=== PATIENT | male | born 1965 | race Hispanic/Latino ===

== ENCOUNTER 2018-07-21 10:17 | Inpatient (IN) | payer BC, OTHER ==
[~2018-07-21] VITALS: Ht 162.6 cm; Wt 70.1 kg
[2018-07-21] VITALS (16 sets, daily range): BP systolic 117–132; BP diastolic 76–95
[2018-07-21] MEDS ORDERED: LIDOCAINE HCL 2% 20ML ONE (10:30)
[2018-07-21] MEDS ORDERED: IOHEXOL 350 MG/ML 100ML INFUS..BTL IV ONE (10:30)
[2018-07-21] MEDS ORDERED: BIVALIRUDIN 250 MG/VIAL IV ONE (10:30)
[2018-07-21] MEDS ORDERED: IOHEXOL-350 50ML VIAL IV ONE (10:30)
[2018-07-21] MEDS ORDERED: NITROGLYCERIN 5 MG/ML 10 ML VIAL IV ONE (10:32)
[2018-07-21] MEDS ORDERED: HEPARIN SODIUM 1000UNIT/ML 10ML VIAL ONE (10:38)
[2018-07-21] MEDS ORDERED: MORPHINE SULFATE 4 MG/1ML SYG ONE (10:40)
[2018-07-21 10:50] LABS: BASOPHILS % (AUTO) 0.7 % (0.0-5.0); EOSINOPHILS % (AUTO) 1.9 % (0.0-8.0); HEMATOCRIT 41.8 % (42-54); LYMPHOCYTES % (AUTO) 51.5 % (21.0-51.0); MEAN CORPUSCULAR HEMOGLOBIN 30.8 pg (27.0-33.0); MEAN CORPUSCULAR HGB CONC 34.7 g/dL (32.0-36.0); MEAN CORPUSCULAR VOLUME 88.8 fL (79-99); MONOCYTES % (AUTO) 8.6 % (3.0-13.0); NEUTROPHILS % (AUTO) 37.3 % (40.0-77.0); NUCLEATED RED BLOOD CELLS 0.1 % (0.0-0.19); PLATELET COUNT (AUTO) 277 K/uL (130-400); RED BLOOD CELL COUNT(AUTO) 4.71 MIL/uL (4.50-6.20); RED CELL DISTRIBUTION WIDTH 13.5 % (11.0-15.5); WHITE BLOOD COUNT (AUTO) 9.4 K/uL (4.8-10.8)
[2018-07-21 10:53] LABS: PARTIAL THROMBOPLASTIN TIME 25.7 SEC (26.3-35.5); PROTHROMBIN TIME 10.5 SEC (9.6-11.6)
[2018-07-21 11:00] LABS: ALBUMIN 3.9 g/dL (3.5-5.0); BILIRUBIN,TOTAL 0.4 mg/dL (0.2-1.0); CREATININE 0.9 mg/dL (0.5-1.5); TOTAL PROTEIN, SERUM 7.7 g/dL (6.0-8.3)
[2018-07-21] MEDS ORDERED: AMIODARONE HCL 900 MG in DEXTROSE 5%-WATER 500 ML IV SCH (11:00)
[2018-07-21 11:02] LABS: POTASSIUM 2.7 mmol/L (3.5-5.1)
[2018-07-21] MEDS ORDERED: POTASSIUM CHLORIDE 20MEQ/100ML 100 ML IV ONE (11:03)
[2018-07-21] MEDS ORDERED: IOHEXOL-350 75 ML VIAL IV ONE (11:20)
[2018-07-21] MEDS ORDERED: TICAGRELOR 90 MG TABLET ONE (11:34)
[2018-07-21] MEDS ORDERED: NITROGLYCERIN 50 MG/D5% WATER 1 BOT IV PRN (12:00)
[2018-07-21] MEDS ORDERED: AMIODARONE HCL 50 MG/ML 3 ML VIAL IV ONE (12:00)
[2018-07-21] MEDS ORDERED: TEMAZEPAM 30 MG CAP PO PRN (12:00)
[2018-07-21] MEDS ORDERED: ONDANSETRON HCL 4 MG/2 ML VIAL IVP PRN (12:00)
[2018-07-21] MEDS ORDERED: ACETAMINOPHEN-CODEINE 300/30MG TAB PO PRN ×2 (12:00)
[2018-07-21] MEDS ORDERED: NITROGLYCERIN 0.4 MG SL TAB SL PRN (12:00)
[2018-07-21 15:49] LABS: AMPHET/METH SCREEN,URINE NEGATIVE (NEGATIVE); BARBITURATE SCREEN, URINE NEGATIVE (NEGATIVE); BENZODIAZEPINES SCREEN,URINE NEGATIVE (NEGATIVE); CANNABINOID SCREEN,URINE NEGATIVE (NEGATIVE); COCAINE SCREEN,URINE NEGATIVE (NEGATIVE); OPIATE SCREEN,URINE NEGATIVE (NEGATIVE); PHENCYCLIDINE SCREEN,URINE NEGATIVE (NEGATIVE)
[2018-07-21] MEDS: INSULIN HUMULIN R 100 UNIT/ML 3ML SQ SCH ×2 (16:30→21:00)
[2018-07-21] MEDS ORDERED: POTASSIUM CHLORIDE 20MEQ/100ML 100 ML IV PRN (17:30)
[2018-07-21] MEDS ORDERED: POTASSIUM CHLORIDE 10% ELIXIR 20 MEQ/15 ML UDCUP PO PRN (17:30)
[2018-07-21] MEDS ORDERED: LIDOCAINE HCL-MPF 1% 2ML VIAL IVP PRN (17:30)
[2018-07-21] MEDS: POTASSIUM CHLORIDE 20 MEQ ERTAB PO PRN ×2 (18:06→22:05)
[2018-07-21] MEDS ORDERED: METOPROLOL TARTRATE 25 MG TAB PO SCH (21:00)
[2018-07-21] MEDS: TICAGRELOR 90 MG TABLET PO SCH (22:03)
[2018-07-22] VITALS (14 sets, daily range): BP systolic 100–139; BP diastolic 45–90
[2018-07-22 03:53] LABS: HEMATOCRIT 42.3 % (42-54); MEAN CORPUSCULAR HEMOGLOBIN 30.8 pg (27.0-33.0); MEAN CORPUSCULAR HGB CONC 34.5 g/dL (32.0-36.0); MEAN CORPUSCULAR VOLUME 89.2 fL (79-99); PLATELET COUNT (AUTO) 262 K/uL (130-400); RED BLOOD CELL COUNT(AUTO) 4.74 MIL/uL (4.50-6.20); RED CELL DISTRIBUTION WIDTH 13.9 % (11.0-15.5)
[2018-07-22 04:31] LABS: CREATININE 0.9 mg/dL (0.5-1.5); POTASSIUM 4.1 mmol/L (3.5-5.1)
[2018-07-22 07:09] LABS: HEMOGLOBIN A1C 5.7 % (4.0-6.0)
[2018-07-22] MEDS: INSULIN HUMULIN R 100 UNIT/ML 3ML SQ SCH ×4 (07:15→21:00)
[2018-07-22] MEDS: ASPIRIN 81MG TAB.CHEW PO SCH (08:04)
[2018-07-22] MEDS: PANTOPRAZOLE SODIUM 40 MG TABLET.DR PO SCH (08:05)
[2018-07-22] MEDS: LISINOPRIL 10 MG TABLET PO SCH (08:05)
[2018-07-22] MEDS: METOPROLOL TARTRATE 50 MG TAB PO SCH ×2 (08:05→20:45)
[2018-07-22] MEDS: TICAGRELOR 90 MG TABLET PO SCH ×2 (08:06→20:45)
[2018-07-22] MEDS ORDERED: ASPIRIN 81MG TAB.CHEW PO SCH (09:00)
[2018-07-22] MEDS ORDERED: ATORVASTATIN CALCIUM 40 MG TABLET ONE (19:21)
[2018-07-22] MEDS ORDERED: ATORVASTATIN CALCIUM 40 MG TABLET PO SCH ×2 (21:00)
[2018-07-23 04:03] VITALS: BP 103/64
[2018-07-23] MEDS: INSULIN HUMULIN R 100 UNIT/ML 3ML SQ SCH ×2 (06:23→11:30)
[2018-07-23 07:00] VITALS: BP 112/67
[2018-07-23] MEDS: ASPIRIN 81MG TAB.CHEW PO SCH (08:15)
[2018-07-23] MEDS: LISINOPRIL 10 MG TABLET PO SCH (08:15)
[2018-07-23] MEDS: TICAGRELOR 90 MG TABLET PO SCH (08:16)
[2018-07-23] MEDS: PANTOPRAZOLE SODIUM 40 MG TABLET.DR PO SCH (08:16)
[2018-07-23] MEDS: METOPROLOL TARTRATE 50 MG TAB PO SCH (08:16)
[2018-07-23] MEDS ORDERED: METO50TA18 PO (08:58)
[2018-07-23] MEDS ORDERED: TICA90TA PO (08:58)
[2018-07-23] MEDS ORDERED: ASPI-1197 PO (08:58)
[2018-07-23] MEDS ORDERED: ATOR40TA69 PO (08:58)
[2018-07-23] MEDS ORDERED: LISI10TA7 PO (08:59)
[2018-07-23 09:13] LABS: POTASSIUM 3.7 mmol/L (3.5-5.1)
[2018-07-23 11:00] VITALS: BP 112/73
== END 2018-07-23 15:30 | disposition home or self-care (01) | DRG 246 ==
LOC: EDH 10:17 → OBSVTOIN 10:18 → EDHIP 10:18 → 2CH 11:15 → 2AH 07-22 17:41
PROVIDERS: ADMIT Internal Medicine; ATTEND Internal Medicine
PROC: 027135Z Dilation of Coronary Artery, Two Arteries with Two Drug-eluting Intraluminal Devices, Percutaneous Approach (ICD-10-PCS; principal; 2018-07-21)
PROC: 4A023N7 Measurement of Cardiac Sampling and Pressure, Left Heart, Percutaneous Approach (ICD-10-PCS; 2018-07-21)
PROC: B2111ZZ Fluoroscopy of Multiple Coronary Arteries using Low Osmolar Contrast (ICD-10-PCS; 2018-07-21)
PROC: B2151ZZ Fluoroscopy of Left Heart using Low Osmolar Contrast (ICD-10-PCS; 2018-07-21)
DX: I21.09 ST elevation (STEMI) myocardial infarction involving other coronary artery of anterior wall (principal); I50.31 Acute diastolic (congestive) heart failure; I49.01 Ventricular fibrillation; I46.2 Cardiac arrest due to underlying cardiac condition; I47.2 Ventricular tachycardia; I11.0 Hypertensive heart disease with heart failure
CPT/HCPCS: 36415; 71045; 80048; 80053; 80061; 80305; 82550; 82948; 83036; 83874; 83880; 84484; 85025; 85027; 85610; 85730; 92921; 92950; 93005; 93306; 93458; C1725; C1760; C1769; C1887; C1894; C9607; J0282; J0583; J1644; J2270; J3480; J3490; J7060; Q9967

== ENCOUNTER 2018-08-15 05:36 | Day surgery (SDC) | payer BC ==
[2018-08-13 11:50] VITALS: BP 117/66
[2018-08-13 12:36] LABS: BASOPHILS % (AUTO) 0.4 % (0.0-5.0); EOSINOPHILS % (AUTO) 2.6 % (0.0-8.0); HEMATOCRIT 41.3 % (42-54); LYMPHOCYTES % (AUTO) 26.2 % (21.0-51.0); MEAN CORPUSCULAR HEMOGLOBIN 30.5 pg (27.0-33.0); MEAN CORPUSCULAR HGB CONC 34.3 g/dL (32.0-36.0); MEAN CORPUSCULAR VOLUME 88.9 fL (79-99); MONOCYTES % (AUTO) 8.1 % (3.0-13.0); NEUTROPHILS % (AUTO) 62.7 % (40.0-77.0); NUCLEATED RED BLOOD CELLS 0.2 % (0.0-0.19); PLATELET COUNT (AUTO) 259 K/uL (130-400); RED BLOOD CELL COUNT(AUTO) 4.64 MIL/uL (4.50-6.20); RED CELL DISTRIBUTION WIDTH 13.2 % (11.0-15.5); WHITE BLOOD COUNT (AUTO) 9.2 K/uL (4.8-10.8)
[2018-08-13 12:45] LABS: APPEARANCE,URINE Clear (CLEAR); BILIRUBIN,URINE Negative (NEGATIVE); COLOR,URINE Yellow (YELLOW); GLUCOSE, URINE (UA) Negative (NEGATIVE); KETONES,URINE Negative (NEGATIVE); LEUKOCYTE ESTERASE ,URINE Small (NEGATIVE); NITRATE,URINE Negative (NEGATIVE); OCCULT BLOOD,URINE Negative (NEGATIVE); PROTEIN,URINE Negative (NEGATIVE)
[2018-08-13 12:48] LABS: CREATININE 0.9 mg/dL (0.5-1.5); POTASSIUM 4.4 mmol/L (3.5-5.1)
[2018-08-13 12:53] LABS: INR 1.06 (0.85-1.15); PARTIAL THROMBOPLASTIN TIME 31.1 SEC (26.3-35.5); PROTHROMBIN TIME 11.1 SEC (9.6-11.6)
[2018-08-13 13:27] LABS: BACTERIA,URINE Rare /HPF (None Seen); RBC,URINE 0-1 /HPF (0-1); SQUAMOUS EPITHELIAL CELL,UR Rare /HPF (0-2); WBC,URINE 0-1 /HPF (0-1)
[~2018-08-15] VITALS: Ht 162.6 cm; Wt 70.2 kg
[2018-08-15] VITALS (19 sets, daily range): BP systolic 101–132; BP diastolic 70–84
[~2018-08-15 05:36] MED LIST: ASPI-1197 PO; ATOR40TA69 PO; LISI10TA7 PO; METO50TA18 PO; TICA90TA PO
[2018-08-15] MEDS ORDERED: SODIUM CHLORIDE 0.9% 1000ML 1,000 ML IV ONE (06:21)
[2018-08-15] MEDS ORDERED: BIVALIRUDIN 250 MG/VIAL IV ONE (07:15)
[2018-08-15] MEDS ORDERED: NITROGLYCERIN 5 MG/ML 10 ML VIAL IV ONE (07:16)
[2018-08-15] MEDS ORDERED: IOHEXOL-350 50ML VIAL IV ONE (07:16)
[2018-08-15] MEDS ORDERED: LIDOCAINE HCL 2% 20ML ONE (07:16)
[2018-08-15] MEDS ORDERED: IOHEXOL 350 MG/ML 100ML INFUS..BTL IV ONE (07:16)
[2018-08-15] MEDS ORDERED: FENTANYL CITRATE PF 50 MCG/1 ML 2ML VIAL ONE (07:52)
[2018-08-15] MEDS ORDERED: MIDAZOLAM HCL 1 MG/ML 2ML VIAL ONE (07:52)
[2018-08-15] MEDS ORDERED: SODIUM CHLORIDE 0.9% 1000ML 1,000 ML IV SCH (08:27)
[2018-08-15] MEDS ORDERED: DEXTROSE 50%-WATER 50 ML DISP.SYRIN IV PRN (08:30)
[2018-08-15] MEDS ORDERED: NITROGLYCERIN 0.4 MG SL TAB SL PRN (08:30)
[2018-08-15] MEDS ORDERED: HYDRALAZINE HCL 20 MG/ML VIAL IV PRN (08:30)
[2018-08-15] MEDS ORDERED: METOPROLOL TARTRATE 1 MG/ML 5ML VIAL IV PRN (08:30)
[2018-08-15] MEDS ORDERED: GLUCAGON 1MG KIT 1 MG ML IM PRN (08:30)
[2018-08-15] MEDS ORDERED: TICAGRELOR 90 MG TABLET PO SCH (09:00)
== END 2018-08-15 16:05 | disposition home or self-care (01) ==
LOC: DAH 05:36
PROVIDERS: ATTEND Internal Medicine Cardiovascular Disease
DX: I25.118 Atherosclerotic heart disease of native coronary artery with other forms of angina pectoris (principal); I21.09 ST elevation (STEMI) myocardial infarction involving other coronary artery of anterior wall; I49.01 Ventricular fibrillation; I10 Essential (primary) hypertension; E78.5 Hyperlipidemia, unspecified; Z79.899 Other long term (current) drug therapy; Z95.5 Presence of coronary angioplasty implant and graft; Z98.890 Other specified postprocedural states
CPT/HCPCS: 36415; 71045; 80048; 81001; 85025; 85610; 85730; 93005; 93454; A4606; C1769 ×2; C1874; C1887; C1894 ×2; C9600; J0583; J1644; J2250; J3010; J3490 ×2; J7030; Q9965; Q9967; 99156; 99157